=== PATIENT | female | born 1975 | race Caucasian/White ===

== ENCOUNTER → 2017-09-03 | Outpatient (CLI) | payer OTHER ==
[~2017-09-03] MED LIST: ADV250/50 INH; ALB0.5 INH; ALBU8.5H IH; ALBU8.5H12 IH; AMLO-101 PO; AMLO-104 PO; BARIUM SULFATE 450 ML SUSP ONE; BUDE3CAP6 PO; CEPH250C37 PO; CHOL100058 PO; DEXL30CA5 PO; DOC100 PO; DULERAPT INH; FLUC200T56 PO; GOLYTE PO; HYDR-6015 PO; IOPAMIDOL 76% 75 ML INFUS BTL 75 ML ONE; LEVO-85 PO; LISI-362 PO; LISI5TAB25 PO; MAGN250T34 PO; METR-160 PO; MON10 PO; MONT10TA PO; NEBI20TA4 PO; OMEG300C PO; PER PO; SPIR50TA31 PO; TAMO20TA24 PO; ZOLP-1 PO; [UNRECOGNIZED DRUG - CODE] PO
--- NOTE | 2017-09-03 12:09 | RADIOLOGY IMAGING REPORT ---
[place]AC[place] [facility] [place] NAME: Licha Etienne : 1975 MR: [id number] V: [id number] EXAM DATE: ORDERING PHYSICIAN: IRAIS NAYLOR TECHNOLOGIST: Location: [facility] Patient: Licha Etienne : 1975 Visit/Account:[id number] Date of Sevice: 09/03/2017 ENTEROGRAPHY ABD/PEL W/CONTR HISTORY: 41-year-old female with Crohn's disease TECHNIQUE: CT abdomen and pelvis with intravenous contrast. Contiguous axial images of the abdomen and pelvis was performed from the lung bases to the symphysis pubis. CT enterography protocol was use d One of the following dose optimization techniques was utilized in the performance of this exam: Autom ated exposure control; adjustment of the mA and/or kV according to the patient's size; or use of an i terative reconstruction technique. Specific details can be referenced in the facility's radiology C T exam operational policy. CONTRAST: 75 cc of Isovue-370, 1350 cc of oral Enterovue COMPARISON: CT 02/26/2017 FINDINGS: Visualized lung bases: Negative. Hepatobiliary: There is fatty infiltration of liver. Gallbladder is absent. Spleen: Tiny hypodensity in the spleen measures approximately 3 mm stable from prior examination lik alcira a benign cyst. Adrenals: Negative. Kidneys/: Uterus appears to be absent. Pancreas: Negative. GI: Reidentified is a short segment stricturing of the terminal ileum with a small degree of enhance ment on the delayed coronal images. Overall amount of enhancement of the terminal ileum has decreased . No focal inflammation, abscess or fistula formation. The remainder of the small large bowel are raul ssly unremarkable without active disease. Vessels/spaces/nodes: Negative. Bones/soft tissues: Gibbus deformity of the anterosuperior endplate of L5 is stable. IMPRESSION: 1. Reidentified is short segment stricturing of the terminal ileum with a small degree of enhancemen t. When compared to prior CT scan 02/26/2017, the stricturing is not significantly changed but the enh ancement has decreased. No evidence for abscess formation, fistula formation or bowel obstruction. No other sites of disease in the small or large bowel. Report Dictated By: Jorge A Alamo MD at 09/03/2017 11:31 AM Report E-Signed By: Jorge A Alamo MD at 09/03/2017 12:05 PM WSN:[id number]
== END ==
LOC: CT 01:06
PROVIDERS: ATTEND Nurse Practitioner Family
DX: K50.00 Crohn's disease of small intestine without complications (principal); Z90.49 Acquired absence of other specified parts of digestive tract; K76.0 Fatty (change of) liver, not elsewhere classified
CPT/HCPCS: 74177; Q9967

== ENCOUNTER → 2017-10-13 | Outpatient (CLI) | payer OTHER ==
[~2017-10-13] MED LIST changes: +ADA40I SUBQ; -BARIUM SULFATE 450 ML SUSP ONE; -IOPAMIDOL 76% 75 ML INFUS BTL 75 ML ONE; +PANT40TA65 PO; +TRAZ50TA34 PO
== END ==
LOC: LAB 15:03
PROVIDERS: ATTEND Obstetrics & Gynecology
DX: E03.9 Hypothyroidism, unspecified (principal); M25.50 Pain in unspecified joint
CPT/HCPCS: 36415; 82040; 82247; 82310; 82374; 82435; 82565; 82947; 84075; 84132; 84155; 84295; 84443; 84450; 84460; 84520; 85610; 85613; 85730; 86038; 86140; 86146; 86147; 86160; 86225; 86235

== ENCOUNTER → 2017-10-29 | Outpatient (CLI) | payer OTHER ==
[2017-10-29 12:41] LABS: PLATELET COUNT, AUTOMATED 227 K/uL (150-450)
== END ==
LOC: LAB 12:15
PROVIDERS: ATTEND Nurse Practitioner Family
DX: K50.00 Crohn's disease of small intestine without complications (principal); R19.7 Diarrhea, unspecified; K21.9 Gastro-esophageal reflux disease without esophagitis
CPT/HCPCS: 36415; 85025

== ENCOUNTER 2018-01-13 00:32 | Day surgery (SDC) | payer OTHER ==
[~2018-01-13] VITALS: Ht 162.6 cm; Wt 58.1 kg
[~2018-01-13 00:32] MED LIST changes: +LISI20TA29 PO; +MAGN400T36 PO; +MELA3TAB14; +OMEG1CAP35 PO
[2018-01-13] MEDS ORDERED: PROPOFOL EMUL(*) 10MG/ML 20 ML 20 ML ONE ×2 (08:30→11:01)
[2018-01-13 09:00] VITALS: BP 112/76
[2018-01-13] MEDS ORDERED: NORMOSOL R SOLN(*) 1000 ML BAG 1,000 ML IV PRN (09:30)
[2018-01-13] MEDS ORDERED: LIDOCAINE/SOD BICARB 8.4% SYR ID ONE (09:30)
[2018-01-13 11:45] VITALS: BP 89/68
[2018-01-13 12:00] VITALS: BP 109/80
[2018-01-13 12:17] VITALS: BP 118/82
[2018-01-13 12:18] VITALS: BP 102/72
== END 2018-01-13 12:34 | disposition home or self-care (01) ==
LOC: OR 00:32
PROVIDERS: ATTEND Internal Medicine Gastroenterology
DX: K64.8 Other hemorrhoids (principal); K63.3 Ulcer of intestine; K22.2 Esophageal obstruction; K29.70 Gastritis, unspecified, without bleeding; K20.9 Esophagitis, unspecified
CPT/HCPCS: 00811; 43249; 45380; 88305; 88313; 88344; C1726; J2704